=== PATIENT | female | born 1970 | race Caucasian/White ===

== ENCOUNTER 2019-11-12 09:03 | Emergency (ER) | payer OTHER ==
[~2019-11-12] VITALS: Ht 170.2 cm; Wt 81.6 kg
[2019-11-12 09:05] VITALS: BP_SYST 156
--- NOTE | 2019-11-12 09:09 | NUR ---
Patient to ER bed 05 to gown for evaluation. Side rails up.
--- NOTE | 2019-11-12 09:15 | NUR ---
Patient AAOx4 BIBA c/o right knee pain and abrasion s/p mechanical fall. Patient states she was getting something out of her car when she felt pain shoot up her leg and her "knee gave out" and she fell on her hands and knees. Patient reports PMH of diabetes and knee surgery in December 2018. Patient denies any allergies. Skin warm/pink/dry and respirations even and unlabored. No signs or symptoms of acute distress noted.
--- NOTE | 2019-11-12 09:23 | NUR ---
ER Dr. León at bedside examining patient.
[2019-11-12] MEDS ORDERED: KETOROLAC TROMETHAMINE 30 MG VIAL IM ONE (09:30)
--- NOTE | 2019-11-12 10:00 | NUR ---
Knee immobilizer placed on patient's right knee per Dr. Mau hogan.
--- NOTE | 2019-11-12 10:11 | NUR ---
Patient given written and verbal discharge instructions and verbalizes understanding. ER MD discussed with patient the results and treatment provided. Patient in stable condition. ID arm band removed. Rx of Robaxin and Tramadol Hydrochloride given. Patient educated on pain management and to follow up with PMD. Pain Scale 3/10 and tolerable. Opportunity for questions provided and answered. Medication side effect fact sheet provided.
[2019-11-12 10:14] VITALS: BP_SYST 145
== END 2019-11-12 10:12 | disposition home or self-care (01) ==
LOC: SED 09:03
DX: S80.01XA Contusion of right knee, initial encounter (principal); W18.39XA Other fall on same level, initial encounter; Y93.89 Activity, other specified; Y92.89 Other specified places as the place of occurrence of the external cause; Y99.8 Other external cause status
CPT/HCPCS: 29505; 73564; 96372; 99283; J1885

== ENCOUNTER 2022-01-16 17:55 | Inpatient (IN) | payer BC, SELFPAY ==
[~2022-01-16] VITALS: Ht 170.2 cm; Wt 88.5 kg
[2022-01-16 18:05] VITALS: BP_SYST 205
[2022-01-16 19:13] LABS: BASOPHILS % (AUTO) 0.8 % (0.0-2.0); EOSINOPHILS # (AUTO) 0.2 K/uL (0.0-0.4); EOSINOPHILS % (AUTO) 3.5 % (0.0-4.0); HEMATOCRIT 30.3 % (36-48); HEMOGLOBIN 9.8 g/dL (12.0-16.0); LYMPHOCYTES # (AUTO) 1.4 K/uL (1.0-5.5); LYMPHOCYTES % (AUTO) 21.2 % (20.5-51.5); MEAN CORPUSCULAR HEMOGLOBIN 28 pg (27-31); MEAN CORPUSCULAR HGB CONC 32 % (32-36); MEAN CORPUSCULAR VOLUME 87 fL (79.0-98.0); MONOCYTES # (AUTO) 0.5 K/uL (0.0-1.0); MONOCYTES % (AUTO) 7.4 % (1.7-9.3); NEUTROPHILS # (AUTO) 4.3 K/uL (1.8-7.7); NEUTROPHILS % (AUTO) 67.1 % (40.0-70.0); PLATELET COUNT (AUTO) 279 K/uL (130-430); RED BLOOD CELL COUNT(AUTO) 3.49 MIL/uL (4.2-6.2); RED CELL DISTRIBUTION WIDTH 15.2 % (9.0-15.0); WHITE BLOOD COUNT (AUTO) 6.4 K/uL (4.8-10.8)
[2022-01-16 19:15] LABS: CALCIUM 7.5 mg/dL (8.4-11.0); POTASSIUM 4.8 mmol/L (3.5-5.1)
[2022-01-16 19:31] LABS: ALBUMIN 2.4 g/dL (3.4-4.8); TOTAL BILIRUBIN 0.2 mg/dL (0.0-1.0)
[2022-01-16 19:37] LABS: CREATININE 8.09 mg/dL (0.55-1.30)
[2022-01-16] MEDS ORDERED: ASPIRIN 325 MG TABLET (ECOTRIN) PO ONE (20:00)
[2022-01-16] MEDS ORDERED: FURO-149 PO (20:10)
[2022-01-16] MEDS ORDERED: STA120 PO (20:10)
[2022-01-16] MEDS ORDERED: INSU300I SQ (20:10)
[2022-01-16] MEDS ORDERED: DULA0.75 (20:10)
[2022-01-16] MEDS ORDERED: HYDR-4039 PO (20:10)
[2022-01-16] MEDS ORDERED: CLON0.1T PO (20:10)
[2022-01-16] MEDS ORDERED: ALBUTEROL SULFATE 0.083% 2.5 MG/3 ML VIAL.NEB INH PRN (20:30)
[2022-01-16] MEDS ORDERED: HYDROcodone/ACETAMIN 5-325 MG TAB (NORCO/ VICODIN) PO PRN (20:30)
[2022-01-16 21:37] VITALS: BP_SYST 193
[2022-01-17] MEDS: cloNIDine HCL 0.1 MG TABLET PO SCH ×3 (01:08→21:11)
[2022-01-17] MEDS: NORMAL SALINE 5 ML DISP.SYRIN IVF SCH ×4 (01:10→20:24)
[2022-01-17] MEDS: INSULIN REGULAR, HUMAN 100 UNITS/ML, 10 ML VIAL (humuLIN R) SUBCUT PRN ×2 (01:13→18:37)
[2022-01-17 01:53] VITALS: BP_SYST 121
[2022-01-17 07:41] LABS: CALCIUM 7.2 mg/dL (8.4-11.0); POTASSIUM 4.8 mmol/L (3.5-5.1); TOTAL BILIRUBIN 0.1 mg/dL (0.0-1.0)
[2022-01-17 08:00] VITALS: BP_SYST 182
[2022-01-17 08:08] LABS: CREATININE 8.24 mg/dL (0.55-1.30)
[2022-01-17 08:54] LABS: BASOPHILS # (AUTO) 0.1 K/uL (0.0-0.2); BASOPHILS % (AUTO) 1.1 % (0.0-2.0); EOSINOPHILS # (AUTO) 0.3 K/uL (0.0-0.4); EOSINOPHILS % (AUTO) 5.7 % (0.0-4.0); HEMATOCRIT 25.1 % (36-48); HEMOGLOBIN 8.2 g/dL (12.0-16.0); LYMPHOCYTES # (AUTO) 1.8 K/uL (1.0-5.5); LYMPHOCYTES % (AUTO) 35.1 % (20.5-51.5); MEAN CORPUSCULAR HEMOGLOBIN 29 pg (27-31); MEAN CORPUSCULAR HGB CONC 33 % (32-36); MEAN CORPUSCULAR VOLUME 87 fL (79.0-98.0); MONOCYTES # (AUTO) 0.5 K/uL (0.0-1.0); MONOCYTES % (AUTO) 10.6 % (1.7-9.3); NEUTROPHILS # (AUTO) 2.5 K/uL (1.8-7.7); NEUTROPHILS % (AUTO) 47.5 % (40.0-70.0); PLATELET COUNT (AUTO) 227 K/uL (130-430); RED BLOOD CELL COUNT(AUTO) 2.88 MIL/uL (4.2-6.2); RED CELL DISTRIBUTION WIDTH 15.2 % (9.0-15.0); WHITE BLOOD COUNT (AUTO) 5.2 K/uL (4.8-10.8)
[2022-01-17] MEDS ORDERED: hydrALAZINE HCL 25 MG TABLET PO SCH (09:00)
[2022-01-17] MEDS: ASPIRIN 325 MG TABLET PO SCH (09:01)
[2022-01-17] MEDS: FUROSEMIDE 40 MG TABLET PO SCH (09:04)
[2022-01-17] MEDS ORDERED: ACETAMINOPHEN 325 MG TABLET PO PRN (10:45)
[2022-01-17] MEDS ORDERED: HYDROcodone/ACETAMIN 5-325 MG TAB (NORCO/ VICODIN) PO PRN (10:45)
[2022-01-17] MEDS ORDERED: LORazepam 2 MG/ML VIAL IVP PRN (10:45)
[2022-01-17] MEDS ORDERED: NALOXONE HCL 0.4 MG/ML AMP (NARCAN) IVP PRN ×2 (10:45)
[2022-01-17 12:00] VITALS: BP_SYST 158
[2022-01-17 16:00] VITALS: BP_SYST 197
[2022-01-17] MEDS ORDERED: SODIUM BICARBONATE 650 MG TABLET PO ONE (16:30)
[2022-01-17] MEDS ORDERED: HEPARIN SODIUM,PORCINE 5,000 UNITS/ML VIAL MC ONE (16:30)
[2022-01-17] MEDS ORDERED: SODIUM BICARBONATE 8.4% JECT 50 MEQ/50 ML SYRINGE IVP ONE (16:30)
[2022-01-17] MEDS: HYDROcodone/ACETAMIN 10-325 MG TAB PO PRN (19:32)
[2022-01-17 20:08] LABS: CLARITY/URINE CLEAR (CLEAR); COLOR,URINE YELLOW (YELLOW)
[2022-01-17 20:09] LABS: BILIRUBIN,URINE NEGATIVE (NEGATIVE); BLOOD, URINE 1+ (NEGATIVE); GLUCOSE,URINE 2+ (NEGATIVE); KETONES,URINE NEGATIVE (NEGATIVE); LEUKOCYTE ESTERASE ,URINE NEGATIVE (NEGATIVE); NITRITE, URINE NEGATIVE (NEGATIVE); PH,URINE 5.5 (5.0-8.0); PROTEIN URINE 3+ (NEGATIVE); UROBILINOGEN,URINE 0.2 (0.2-1.0)
[2022-01-17 20:10] LABS: BACTERIA,URINE FEW /HPF (None Seen); FINE GRANULAR CASTS,URINE 0-10 /LPF (None Seen); MUCUS,URINE None Seen /LPF (None Seen); RBC,URINE 0-3 /HPF (0-3); WBC,URINE 0-3 /HPF (0-3)
[2022-01-17] MEDS: SODIUM BICARBONATE 650 MG TABLET PO SCH (21:11)
[2022-01-18 00:29] VITALS: BP_SYST 186
[2022-01-18] MEDS: HYDROcodone/ACETAMIN 10-325 MG TAB PO PRN (03:23)
[2022-01-18 06:34] LABS: BASOPHILS # (AUTO) 0.1 K/uL (0.0-0.2); BASOPHILS % (AUTO) 0.9 % (0.0-2.0); EOSINOPHILS # (AUTO) 0.3 K/uL (0.0-0.4); EOSINOPHILS % (AUTO) 4.8 % (0.0-4.0); HEMATOCRIT 25.8 % (36-48); HEMOGLOBIN 8.5 g/dL (12.0-16.0); LYMPHOCYTES # (AUTO) 0.9 K/uL (1.0-5.5); MEAN CORPUSCULAR HEMOGLOBIN 29 pg (27-31); MEAN CORPUSCULAR HGB CONC 33 % (32-36); MEAN CORPUSCULAR VOLUME 87 fL (79.0-98.0); MONOCYTES # (AUTO) 0.5 K/uL (0.0-1.0); MONOCYTES % (AUTO) 8.3 % (1.7-9.3); NEUTROPHILS # (AUTO) 4.1 K/uL (1.8-7.7); PLATELET COUNT (AUTO) 238 K/uL (130-430); RED BLOOD CELL COUNT(AUTO) 2.98 MIL/uL (4.2-6.2); RED CELL DISTRIBUTION WIDTH 14.9 % (9.0-15.0); WHITE BLOOD COUNT (AUTO) 5.9 K/uL (4.8-10.8)
[2022-01-18] MEDS: NORMAL SALINE 5 ML DISP.SYRIN IVF SCH ×3 (06:38→22:16)
[2022-01-18 06:39] LABS: PROTHROMBIN TIME 9.8 SECS (9.5-12.5)
[2022-01-18 07:14] LABS: TOTAL IRON BIND. CAPACITY 177 ug/dL (250-450)
[2022-01-18 07:18] LABS: ALBUMIN 1.7 g/dL (3.4-4.8); CALCIUM 7.1 mg/dL (8.4-11.0); POTASSIUM 5.1 mmol/L (3.5-5.1); TOTAL BILIRUBIN 0.2 mg/dL (0.0-1.0)
[2022-01-18 08:24] VITALS: BP_SYST 185
[2022-01-18] MEDS: FUROSEMIDE 40 MG TABLET PO SCH (08:42)
[2022-01-18] MEDS: ASPIRIN 325 MG TABLET PO SCH (08:43)
[2022-01-18] MEDS: cloNIDine HCL 0.1 MG TABLET PO SCH ×2 (08:43→20:51)
[2022-01-18] MEDS: ACETAMINOPHEN 325 MG TABLET PO PRN ×3 (08:43→18:17)
[2022-01-18] MEDS: SODIUM BICARBONATE 650 MG TABLET PO SCH ×3 (08:43→20:50)
[2022-01-18] MEDS ORDERED: HEPARIN SODIUM,PORCINE 5,000 UNITS/ML VIAL SUBCUT ONE ×2 (09:00)
[2022-01-18] MEDS ORDERED: hydrALAZINE HCL 25 MG TABLET PO SCH (09:00)
[2022-01-18 09:07] LABS: CREATININE 9.13 mg/dL (0.55-1.30); PHOSPHORUS 9.5 mg/dL (2.7-4.5)
[2022-01-18] MEDS: ONDANSETRON HCL 4 MG/2 ML VIAL IVP PRN ×2 (09:45→14:16)
[2022-01-18] MEDS ORDERED: hydrALAZINE HCL 20 MG/ML VIAL IVP ONE (11:15)
[2022-01-18 11:22] VITALS: BP_SYST 198
[2022-01-18] MEDS: hydrALAZINE HCL 25 MG TABLET PO SCH ×2 (13:49→22:16)
[2022-01-18 14:56] LABS: BARBITURATE, URINE NEGATIVE (NEG <=200); BENZODIAZEPINE, URINE NEGATIVE (NEG <=150); CANNABINOID, URINE NEGATIVE (NEG <=50); COCAINE, URINE NEGATIVE (NEG <=150); METHAMPHETAMINES SCREEN,URINE NEGATIVE (NEG <=500); OPIATE, URINE NEGATIVE (NEG <=100); PHENCYCLIDINE SCREEN,URINE NEGATIVE (NEG <=25); UR TRICYCLIC ANTIDEPRESSANTS NEGATIVE (NEG <=300); URINE AMPHETAMINE NEGATIVE (NEG <=500); URINE METHADONE NEGATIVE (NEG <=200); URINE OXYCODONE SCREEN NEGATIVE (NEG <=100); URINE PROPOXYPHENE SCREEN NEGATIVE (NEG <=300)
[2022-01-18 15:57] VITALS: BP_SYST 173
[2022-01-18 16:13] LABS: THYROID STIMULATING HORMONE 2.93 uIu/mL (0.34-4.82)
[2022-01-18] MEDS: EPOETIN ALFA 10,000 UNITS/ML VIAL SUBCUT SCH (16:33)
[2022-01-18] MEDS: INSULIN REGULAR, HUMAN 100 UNITS/ML, 10 ML VIAL (humuLIN R) SUBCUT PRN ×2 (16:36→20:49)
[2022-01-18] MEDS ORDERED: POTASSIUM CHLORIDE 20 MEQ/PKT PACKET PO ONE (19:45)
[2022-01-18] MEDS ORDERED: CALCIUM ACETATE 667 MG CAP PO ONE (20:00)
[2022-01-18] MEDS: SOD FERRIC GLUC COMPLEX/SUC 125 MG in NS 100 ML IV SCH (21:00)
[2022-01-18] MEDS: METOCLOPRAMIDE HCL 10 MG/2 ML VIAL IVP PRN (22:14)
[2022-01-19 00:17] VITALS: BP_SYST 156
[2022-01-19] MEDS: NORMAL SALINE 5 ML DISP.SYRIN IVF SCH ×3 (06:17→21:36)
[2022-01-19] MEDS: hydrALAZINE HCL 25 MG TABLET PO SCH ×4 (06:17→22:00)
[2022-01-19] MEDS: INSULIN REGULAR, HUMAN 100 UNITS/ML, 10 ML VIAL (humuLIN R) SUBCUT PRN ×3 (06:19→20:37)
[2022-01-19 06:29] VITALS: BP_SYST 155
[2022-01-19 07:01] LABS: ALBUMIN 1.8 g/dL (3.4-4.8); CALCIUM 7.4 mg/dL (8.4-11.0); CREATININE 6.53 mg/dL (0.55-1.30); POTASSIUM 4.5 mmol/L (3.5-5.1); TOTAL BILIRUBIN 0.3 mg/dL (0.0-1.0)
[2022-01-19 07:50] LABS: BASOPHILS % (AUTO) 1.1 % (0.0-2.0); EOSINOPHILS # (AUTO) 0.2 K/uL (0.0-0.4); EOSINOPHILS % (AUTO) 6.1 % (0.0-4.0); HEMOGLOBIN 9.2 g/dL (12.0-16.0); LYMPHOCYTES # (AUTO) 1.2 K/uL (1.0-5.5); LYMPHOCYTES % (AUTO) 29.5 % (20.5-51.5); MEAN CORPUSCULAR HEMOGLOBIN 29 pg (27-31); MEAN CORPUSCULAR HGB CONC 33 % (32-36); MEAN CORPUSCULAR VOLUME 87 fL (79.0-98.0); MONOCYTES # (AUTO) 0.4 K/uL (0.0-1.0); MONOCYTES % (AUTO) 11.4 % (1.7-9.3); NEUTROPHILS % (AUTO) 51.9 % (40.0-70.0); PLATELET COUNT (AUTO) 204 K/uL (130-430); RED BLOOD CELL COUNT(AUTO) 3.24 MIL/uL (4.2-6.2); WHITE BLOOD COUNT (AUTO) 3.9 K/uL (4.8-10.8)
[2022-01-19] MEDS: SODIUM BICARBONATE 650 MG TABLET PO SCH ×4 (09:38→21:00)
[2022-01-19] MEDS: cloNIDine HCL 0.1 MG TABLET PO SCH (09:39)
[2022-01-19] MEDS: CALCIUM ACETATE 667 MG CAP PO SCH ×4 (09:40→17:41)
[2022-01-19] MEDS: FUROSEMIDE 40 MG TABLET PO SCH (09:40)
[2022-01-19] MEDS: ASPIRIN 325 MG TABLET PO SCH (09:40)
[2022-01-19] MEDS ORDERED: hydrALAZINE HCL 20 MG/ML VIAL IVP ONE (09:45)
[2022-01-19] MEDS: ONDANSETRON HCL 4 MG/2 ML VIAL IVP PRN ×3 (10:28→20:19)
[2022-01-19 11:04] LABS: URINE SODIUM, RANDOM 52 mmol/L (40-220)
[2022-01-19 11:34] VITALS: BP_SYST 149
[2022-01-19 11:50] VITALS: BP_SYST 203
[2022-01-19 14:06] LABS: CREATININE, URINE 58.3 mg/dL (Not Estab.)
[2022-01-19] MEDS ORDERED: HEPARIN SODIUM,PORCINE 5,000 UNITS/ML VIAL MC ONE (14:45)
[2022-01-19 15:23] VITALS: BP_SYST 165
[2022-01-19] MEDS ORDERED: HEPARIN SODIUM,PORCINE 5,000 UNITS/ML VIAL ONE (16:44)
[2022-01-19] MEDS: METOCLOPRAMIDE HCL 10 MG/2 ML VIAL IVP PRN (17:15)
[2022-01-19] MEDS: ACETAMINOPHEN 325 MG TABLET PO PRN (17:49)
[2022-01-19] MEDS: SOD FERRIC GLUC COMPLEX/SUC 125 MG in NS 100 ML IV SCH (20:30)
[2022-01-19] MEDS: cloNIDine HCL 0.2 MG TABLET PO SCH (21:00)
[2022-01-19] MEDS ORDERED: hydrALAZINE HCL 20 MG/ML VIAL ONE (21:23)
[2022-01-19] MEDS: hydrALAZINE HCL 20 MG/ML VIAL IVP PRN (21:31)
[2022-01-19 22:47] VITALS: BP_SYST 194
[2022-01-20 00:43] VITALS: BP_SYST 165
[2022-01-20] MEDS: METOCLOPRAMIDE HCL 10 MG/2 ML VIAL IVP PRN ×3 (01:36→20:30)
[2022-01-20] MEDS: ONDANSETRON HCL 4 MG/2 ML VIAL IVP PRN ×2 (01:36→12:30)
[2022-01-20] MEDS: hydrALAZINE HCL 25 MG TABLET PO SCH ×3 (06:00→22:00)
[2022-01-20 06:34] LABS: EOSINOPHILS % (AUTO) 0.4 % (0.0-4.0); HEMATOCRIT 29.9 % (36-48); HEMOGLOBIN 9.6 g/dL (12.0-16.0); LYMPHOCYTES # (AUTO) 0.6 K/uL (1.0-5.5); LYMPHOCYTES % (AUTO) 12.6 % (20.5-51.5); MEAN CORPUSCULAR HEMOGLOBIN 28 pg (27-31); MEAN CORPUSCULAR HGB CONC 32 % (32-36); MEAN CORPUSCULAR VOLUME 87 fL (79.0-98.0); MONOCYTES # (AUTO) 0.3 K/uL (0.0-1.0); MONOCYTES % (AUTO) 7.3 % (1.7-9.3); NEUTROPHILS # (AUTO) 3.6 K/uL (1.8-7.7); NEUTROPHILS % (AUTO) 78.7 % (40.0-70.0); PLATELET COUNT (AUTO) 222 K/uL (130-430); RED BLOOD CELL COUNT(AUTO) 3.44 MIL/uL (4.2-6.2); RED CELL DISTRIBUTION WIDTH 14.8 % (9.0-15.0); WHITE BLOOD COUNT (AUTO) 4.6 K/uL (4.8-10.8)
[2022-01-20] MEDS ORDERED: hydrALAZINE HCL 20 MG/ML VIAL ONE (06:42)
[2022-01-20] MEDS: NORMAL SALINE 5 ML DISP.SYRIN IVF SCH ×3 (06:44→21:59)
[2022-01-20] MEDS: hydrALAZINE HCL 20 MG/ML VIAL IVP PRN (06:45)
[2022-01-20 06:50] VITALS: BP_SYST 159
[2022-01-20 07:14] LABS: CALCIUM 7.8 mg/dL (8.4-11.0); CREATININE 4.95 mg/dL (0.55-1.30); POTASSIUM 3.9 mmol/L (3.5-5.1)
[2022-01-20 08:00] VITALS: BP_SYST 166
[2022-01-20] MEDS: CALCIUM ACETATE 667 MG CAP PO SCH ×3 (09:05→17:36)
[2022-01-20] MEDS: cloNIDine HCL 0.2 MG TABLET PO SCH ×2 (09:05→20:48)
[2022-01-20] MEDS: FUROSEMIDE 40 MG TABLET PO SCH (09:06)
[2022-01-20] MEDS: SODIUM BICARBONATE 650 MG TABLET PO SCH ×3 (09:06→20:50)
[2022-01-20] MEDS: ASPIRIN 325 MG TABLET PO SCH (09:07)
[2022-01-20] MEDS ORDERED: PANTOPRAZOLE SODIUM 40 MG/VIAL (PROTONIX) IVP ONE (10:00)
[2022-01-20 12:00] VITALS: BP_SYST 162
[2022-01-20 13:17] LABS: HEMATOCRIT 30.3 % (36-48); HEMOGLOBIN 9.7 g/dL (12.0-16.0)
[2022-01-20 16:00] VITALS: BP_SYST 159
[2022-01-20] MEDS: EPOETIN ALFA 10,000 UNITS/ML VIAL SUBCUT SCH (17:23)
[2022-01-20] MEDS: INSULIN REGULAR, HUMAN 100 UNITS/ML, 10 ML VIAL (humuLIN R) SUBCUT PRN ×2 (17:36→20:45)
[2022-01-20] MEDS ORDERED: LOSARTAN POTASSIUM 50 MG TABLET (COZAAR) PO ONE (18:00)
[2022-01-20 20:05] LABS: HEMATOCRIT 29.4 % (36-48); HEMOGLOBIN 9.6 g/dL (12.0-16.0)
[2022-01-20 20:11] VITALS: BP_SYST 158
[2022-01-20] MEDS: SOD FERRIC GLUC COMPLEX/SUC 125 MG in NS 100 ML IV SCH (20:33)
[2022-01-20] MEDS: PANTOPRAZOLE SODIUM 40 MG/VIAL (PROTONIX) IVP SCH (20:47)
[2022-01-21 00:47] VITALS: BP_SYST 148
[2022-01-21] MEDS: hydrALAZINE HCL 25 MG TABLET PO SCH ×3 (06:20→20:56)
[2022-01-21] MEDS: NORMAL SALINE 5 ML DISP.SYRIN IVF SCH ×3 (06:25→22:00)
[2022-01-21 06:48] LABS: BASOPHILS # (AUTO) 0.1 K/uL (0.0-0.2); EOSINOPHILS # (AUTO) 0.1 K/uL (0.0-0.4); EOSINOPHILS % (AUTO) 1.8 % (0.0-4.0); HEMATOCRIT 29.8 % (36-48); HEMOGLOBIN 9.5 g/dL (12.0-16.0); LYMPHOCYTES # (AUTO) 1.1 K/uL (1.0-5.5); MEAN CORPUSCULAR HEMOGLOBIN 28 pg (27-31); MEAN CORPUSCULAR HGB CONC 32 % (32-36); MEAN CORPUSCULAR VOLUME 87 fL (79.0-98.0); MONOCYTES # (AUTO) 0.7 K/uL (0.0-1.0); MONOCYTES % (AUTO) 13.1 % (1.7-9.3); NEUTROPHILS # (AUTO) 3.1 K/uL (1.8-7.7); NEUTROPHILS % (AUTO) 62.1 % (40.0-70.0); PLATELET COUNT (AUTO) 224 K/uL (130-430); RED BLOOD CELL COUNT(AUTO) 3.42 MIL/uL (4.2-6.2); RED CELL DISTRIBUTION WIDTH 14.8 % (9.0-15.0)
[2022-01-21 06:57] LABS: CALCIUM 7.9 mg/dL (8.4-11.0); CREATININE 5.52 mg/dL (0.55-1.30); POTASSIUM 4.2 mmol/L (3.5-5.1)
[2022-01-21 07:06] LABS: HEPATITIS A AB, IgM Negative (Negative); HEPATITIS B CORE AB, IgM Negative (Negative); HEPATITIS B SURFACE AG Negative (Negative)
[2022-01-21] MEDS: CALCIUM ACETATE 667 MG CAP PO SCH ×3 (08:00→17:35)
[2022-01-21 08:03] VITALS: BP_SYST 162
[2022-01-21] MEDS: PANTOPRAZOLE SODIUM 40 MG/VIAL (PROTONIX) IVP SCH ×2 (08:48→21:02)
[2022-01-21] MEDS: cloNIDine HCL 0.2 MG TABLET PO SCH ×2 (08:59→21:01)
[2022-01-21] MEDS: FUROSEMIDE 40 MG TABLET PO SCH (09:00)
[2022-01-21] MEDS: LOSARTAN POTASSIUM 50 MG TABLET (COZAAR) PO SCH (09:00)
[2022-01-21] MEDS: SODIUM BICARBONATE 650 MG TABLET PO SCH ×3 (09:00→20:55)
[2022-01-21 11:23] VITALS: BP_SYST 162
[2022-01-21] MEDS ORDERED: NS IRRIG SOLN 1000 ML IR ONE (12:15)
[2022-01-21] MEDS ORDERED: HEPARIN SODIUM,PORCINE/NS/PF 1,000 UNITS/500 ML BAG IV ONE (12:15)
[2022-01-21] MEDS ORDERED: ceFAZolin SODIUM 1 GM VIAL ONE (12:15)
[2022-01-21] MEDS ORDERED: LIDOCAINE 1% 10 MG/ML, 20 ML MDV ONE (12:15)
[2022-01-21] MEDS ORDERED: MIDAZOLAM HCL 2 MG/2 ML VIAL (VERSED) ONE (12:15)
[2022-01-21] MEDS ORDERED: PROPOFOL 200MG/ 20ML VIAL (DIPRIVAN) IV ONE (12:15)
[2022-01-21] MEDS ORDERED: NS 1000 ML IV.SOLN IV ONE (12:15)
[2022-01-21] MEDS ORDERED: fentaNYL CITRATE 250 MCG/5 ML AMP ONE (12:15)
[2022-01-21] MEDS ORDERED: HYDROmorphone 1 MG/ML INJ. CARTRIDGE IVP PRN (13:15)
[2022-01-21] MEDS ORDERED: NACL 0.9% 1,000 ML IV SCH (13:15)
[2022-01-21] MEDS ORDERED: METOCLOPRAMIDE HCL 10 MG/2 ML VIAL IVP PRN (13:15)
[2022-01-21] MEDS ORDERED: ONDANSETRON HCL 4 MG/2 ML VIAL IVP PRN (13:15)
[2022-01-21 14:30] VITALS: BP_SYST 192
[2022-01-21] MEDS ORDERED: HEPARIN SODIUM,PORCINE 5,000 UNITS/ML VIAL SUBCUT ONE ×2 (16:15→16:30)
[2022-01-21 18:30] LABS: HEMOGLOBIN 9.8 g/dL (12.0-16.0)
[2022-01-21 20:00] VITALS: BP_SYST 163
[2022-01-21] MEDS: ACETAMINOPHEN 325 MG TABLET PO PRN (20:57)
[2022-01-21] MEDS: SOD FERRIC GLUC COMPLEX/SUC 125 MG in NS 100 ML IV SCH (20:58)
[2022-01-22 00:33] VITALS: BP_SYST 192
[2022-01-22 02:47] LABS: HEMATOCRIT 27.2 % (36-48); HEMOGLOBIN 8.8 g/dL (12.0-16.0)
[2022-01-22] MEDS: NORMAL SALINE 5 ML DISP.SYRIN IVF SCH ×3 (04:12→22:34)
[2022-01-22] MEDS: hydrALAZINE HCL 25 MG TABLET PO SCH ×3 (05:56→22:32)
[2022-01-22 08:00] VITALS: BP_SYST 147
[2022-01-22] MEDS: SODIUM BICARBONATE 650 MG TABLET PO SCH ×3 (09:22→22:32)
[2022-01-22] MEDS: cloNIDine HCL 0.2 MG TABLET PO SCH ×2 (09:23→22:32)
[2022-01-22] MEDS: FUROSEMIDE 40 MG TABLET PO SCH (09:23)
[2022-01-22] MEDS: CALCIUM ACETATE 667 MG CAP PO SCH ×3 (09:24→17:46)
[2022-01-22] MEDS: LOSARTAN POTASSIUM 50 MG TABLET (COZAAR) PO SCH (09:25)
[2022-01-22] MEDS: ASPIRIN 325 MG TABLET PO SCH (09:25)
[2022-01-22] MEDS: PANTOPRAZOLE SODIUM 40 MG/VIAL (PROTONIX) IVP SCH ×2 (09:25→22:32)
[2022-01-22 09:48] VITALS: BP_SYST 147
[2022-01-22 10:19] LABS: HEMATOCRIT 30.4 % (36-48); HEMOGLOBIN 9.8 g/dL (12.0-16.0)
[2022-01-22] MEDS: INSULIN REGULAR, HUMAN 100 UNITS/ML, 10 ML VIAL (humuLIN R) SUBCUT PRN ×3 (11:58→22:34)
[2022-01-22 12:45] VITALS: BP_SYST 164
[2022-01-22 16:45] VITALS: BP_SYST 157
[2022-01-22] MEDS: EPOETIN ALFA 10,000 UNITS/ML VIAL SUBCUT SCH (17:47)
[2022-01-22 18:37] LABS: HEMATOCRIT 29.6 % (36-48); HEMOGLOBIN 9.7 g/dL (12.0-16.0)
[2022-01-22] MEDS: SOD FERRIC GLUC COMPLEX/SUC 125 MG in NS 100 ML IV SCH (20:00)
[2022-01-22 22:29] VITALS: BP_SYST 160
[2022-01-23 00:13] VITALS: BP_SYST 161
[2022-01-23 06:34] VITALS: BP_SYST 145
[2022-01-23] MEDS: hydrALAZINE HCL 25 MG TABLET PO SCH ×3 (06:35→22:33)
[2022-01-23] MEDS: NORMAL SALINE 5 ML DISP.SYRIN IVF SCH ×3 (06:35→22:22)
[2022-01-23] MEDS: INSULIN REGULAR, HUMAN 100 UNITS/ML, 10 ML VIAL (humuLIN R) SUBCUT PRN ×4 (06:37→21:01)
[2022-01-23 07:13] LABS: BASOPHILS % (AUTO) 0.9 % (0.0-2.0); EOSINOPHILS # (AUTO) 0.3 K/uL (0.0-0.4); EOSINOPHILS % (AUTO) 6.2 % (0.0-4.0); HEMATOCRIT 27.2 % (36-48); HEMOGLOBIN 8.8 g/dL (12.0-16.0); LYMPHOCYTES # (AUTO) 1.1 K/uL (1.0-5.5); LYMPHOCYTES % (AUTO) 20.5 % (20.5-51.5); MEAN CORPUSCULAR HEMOGLOBIN 29 pg (27-31); MEAN CORPUSCULAR HGB CONC 32 % (32-36); MEAN CORPUSCULAR VOLUME 88 fL (79.0-98.0); MONOCYTES # (AUTO) 0.6 K/uL (0.0-1.0); MONOCYTES % (AUTO) 11.6 % (1.7-9.3); NEUTROPHILS # (AUTO) 3.4 K/uL (1.8-7.7); NEUTROPHILS % (AUTO) 60.8 % (40.0-70.0); PLATELET COUNT (AUTO) 202 K/uL (130-430); RED BLOOD CELL COUNT(AUTO) 3.08 MIL/uL (4.2-6.2); RED CELL DISTRIBUTION WIDTH 14.7 % (9.0-15.0); WHITE BLOOD COUNT (AUTO) 5.5 K/uL (4.8-10.8)
[2022-01-23 07:27] LABS: ALANINE AMINOTRANSFERASE 10 U/L (12-78); ANION GAP 7 (5-15); ASPARTATE AMINOTRANSFERASE 15 U/L (10-37); CALCIUM 8.1 mg/dL (8.4-11.0); CHLORIDE 100 mmol/L (98-107); CREATININE 4.93 mg/dL (0.55-1.30); GLUCOSE 262 mg/dL (70-99); PHOSPHORUS 4.8 mg/dL (2.7-4.5); POTASSIUM 4.4 mmol/L (3.5-5.1); SODIUM SERUM 136 mmol/L (136-145); TOTAL BILIRUBIN < 0.1 mg/dL (0.0-1.0); UREA NITROGEN, BLOOD 38 mg/dL (8-21)
[2022-01-23 07:48] LABS: GFR AFRICAN AMERICAN 12 mL/min (>90)
[2022-01-23 08:28] VITALS: BP_SYST 165
[2022-01-23] MEDS: SODIUM BICARBONATE 650 MG TABLET PO SCH ×3 (08:32→20:03)
[2022-01-23] MEDS: CALCIUM ACETATE 667 MG CAP PO SCH ×3 (08:32→17:24)
[2022-01-23] MEDS: ASPIRIN 325 MG TABLET PO SCH (08:32)
[2022-01-23] MEDS: PANTOPRAZOLE SODIUM 40 MG/VIAL (PROTONIX) IVP SCH ×2 (08:32→20:04)
[2022-01-23] MEDS: cloNIDine HCL 0.2 MG TABLET PO SCH ×2 (08:33→20:04)
[2022-01-23] MEDS: FUROSEMIDE 40 MG TABLET PO SCH (08:33)
[2022-01-23] MEDS: LOSARTAN POTASSIUM 50 MG TABLET (COZAAR) PO SCH (08:34)
[2022-01-23] MEDS: BALSAM PERU/CASTOR OIL 56.7 GM OINT...G. TP SCH (08:46)
[2022-01-23] MEDS ORDERED: HEPARIN SODIUM,PORCINE 5,000 UNITS/ML VIAL ONE ×2 (10:58→13:46)
[2022-01-23] MEDS ORDERED: HEPARIN SODIUM,PORCINE 5,000 UNITS/ML VIAL MC ONE (11:00)
[2022-01-23 12:38] VITALS: BP_SYST 150
[2022-01-23 15:14] VITALS: BP_SYST 155
[2022-01-23 20:00] VITALS: BP_SYST 145
[2022-01-23] MEDS: ACETAMINOPHEN 325 MG TABLET PO PRN (20:03)
[2022-01-23] MEDS: SOD FERRIC GLUC COMPLEX/SUC 125 MG in NS 100 ML IV SCH (20:04)
[2022-01-23 20:11] LABS: TOTAL IRON BIND. CAPACITY 164 ug/dL (250-450)
[2022-01-23] MEDS: NEPHROVITE, (FOLIC ACID/VITAMIN B COMP W-C 1 TAB) PO SCH (22:32)
[2022-01-24 00:23] VITALS: BP_SYST 146
[2022-01-24] MEDS: NORMAL SALINE 5 ML DISP.SYRIN IVF SCH ×3 (06:15→20:44)
[2022-01-24] MEDS: hydrALAZINE HCL 25 MG TABLET PO SCH ×3 (06:20→21:42)
[2022-01-24] MEDS: INSULIN REGULAR, HUMAN 100 UNITS/ML, 10 ML VIAL (humuLIN R) SUBCUT PRN ×4 (06:24→20:47)
[2022-01-24 07:17] LABS: BASOPHILS % (AUTO) 0.9 % (0.0-2.0); EOSINOPHILS # (AUTO) 0.3 K/uL (0.0-0.4); EOSINOPHILS % (AUTO) 6.3 % (0.0-4.0); HEMATOCRIT 27.8 % (36-48); LYMPHOCYTES # (AUTO) 1.4 K/uL (1.0-5.5); LYMPHOCYTES % (AUTO) 27.1 % (20.5-51.5); MEAN CORPUSCULAR HEMOGLOBIN 29 pg (27-31); MEAN CORPUSCULAR HGB CONC 32 % (32-36); MEAN CORPUSCULAR VOLUME 89 fL (79.0-98.0); MONOCYTES # (AUTO) 0.7 K/uL (0.0-1.0); MONOCYTES % (AUTO) 12.7 % (1.7-9.3); NEUTROPHILS # (AUTO) 2.8 K/uL (1.8-7.7); PLATELET COUNT (AUTO) 202 K/uL (130-430); RED BLOOD CELL COUNT(AUTO) 3.13 MIL/uL (4.2-6.2); RED CELL DISTRIBUTION WIDTH 14.9 % (9.0-15.0); WHITE BLOOD COUNT (AUTO) 5.3 K/uL (4.8-10.8)
[2022-01-24 07:46] LABS: CALCIUM 8.1 mg/dL (8.4-11.0); CREATININE 3.78 mg/dL (0.55-1.30); PHOSPHORUS 3.4 mg/dL (2.7-4.5); POTASSIUM 4.4 mmol/L (3.5-5.1)
[2022-01-24 08:22] VITALS: BP_SYST 151
[2022-01-24] MEDS: PANTOPRAZOLE SODIUM 40 MG/VIAL (PROTONIX) IVP SCH ×2 (09:01→20:32)
[2022-01-24] MEDS: SODIUM BICARBONATE 650 MG TABLET PO SCH ×3 (09:02→20:33)
[2022-01-24] MEDS: LOSARTAN POTASSIUM 50 MG TABLET (COZAAR) PO SCH (09:02)
[2022-01-24] MEDS: ASPIRIN 325 MG TABLET PO SCH (09:03)
[2022-01-24] MEDS: CALCIUM ACETATE 667 MG CAP PO SCH ×3 (09:03→16:15)
[2022-01-24] MEDS: cloNIDine HCL 0.2 MG TABLET PO SCH ×2 (09:03→20:32)
[2022-01-24] MEDS: FUROSEMIDE 40 MG TABLET PO SCH (09:04)
[2022-01-24] MEDS: NEPHROVITE, (FOLIC ACID/VITAMIN B COMP W-C 1 TAB) PO SCH (09:20)
[2022-01-24] MEDS: ACETAMINOPHEN 325 MG TABLET PO PRN (09:20)
[2022-01-24] MEDS: BALSAM PERU/CASTOR OIL 56.7 GM OINT...G. TP SCH (09:22)
[2022-01-24] MEDS ORDERED: FERR324T11 PO (11:19)
[2022-01-24] MEDS ORDERED: PRO40 PO (11:19)
[2022-01-24] MEDS ORDERED: NEPH PO (11:19)
[2022-01-24] MEDS ORDERED: LOSA50TA3 PO (11:19)
[2022-01-24] MEDS ORDERED: PHO667 PO (11:19)
[2022-01-24] MEDS ORDERED: SODI650T PO (11:19)
[2022-01-24 16:17] VITALS: BP_SYST 165
[2022-01-24 20:00] VITALS: BP_SYST 165
[2022-01-24] MEDS: SOD FERRIC GLUC COMPLEX/SUC 125 MG in NS 100 ML IV SCH (20:31)
[2022-01-25 01:27] VITALS: BP_SYST 144
[2022-01-25 06:14] LABS: BASOPHILS # (AUTO) 0.1 K/uL (0.0-0.2); BASOPHILS % (AUTO) 0.8 % (0.0-2.0); EOSINOPHILS # (AUTO) 0.4 K/uL (0.0-0.4); EOSINOPHILS % (AUTO) 5.3 % (0.0-4.0); HEMATOCRIT 27.6 % (36-48); LYMPHOCYTES # (AUTO) 1.3 K/uL (1.0-5.5); MEAN CORPUSCULAR HEMOGLOBIN 29 pg (27-31); MEAN CORPUSCULAR HGB CONC 33 % (32-36); MEAN CORPUSCULAR VOLUME 89 fL (79.0-98.0); MONOCYTES # (AUTO) 0.8 K/uL (0.0-1.0); MONOCYTES % (AUTO) 10.8 % (1.7-9.3); NEUTROPHILS # (AUTO) 4.5 K/uL (1.8-7.7); NEUTROPHILS % (AUTO) 64.1 % (40.0-70.0); PLATELET COUNT (AUTO) 209 K/uL (130-430); RED CELL DISTRIBUTION WIDTH 15.3 % (9.0-15.0); WHITE BLOOD COUNT (AUTO) 7.1 K/uL (4.8-10.8)
[2022-01-25] MEDS: hydrALAZINE HCL 25 MG TABLET PO SCH (06:23)
[2022-01-25] MEDS: NORMAL SALINE 5 ML DISP.SYRIN IVF SCH (06:24)
[2022-01-25] MEDS: INSULIN REGULAR, HUMAN 100 UNITS/ML, 10 ML VIAL (humuLIN R) SUBCUT PRN ×2 (06:27→10:42)
[2022-01-25 07:41] LABS: ALBUMIN 1.9 g/dL (3.4-4.8); CALCIUM 8.1 mg/dL (8.4-11.0); CREATININE 4.5 mg/dL (0.55-1.30); POTASSIUM 4.1 mmol/L (3.5-5.1)
[2022-01-25 07:54] LABS: TOTAL BILIRUBIN 0.2 mg/dL (0.0-1.0)
[2022-01-25 08:00] VITALS: BP_SYST 153
[2022-01-25] MEDS: PANTOPRAZOLE SODIUM 40 MG/VIAL (PROTONIX) IVP SCH (08:15)
[2022-01-25] MEDS: SODIUM BICARBONATE 650 MG TABLET PO SCH (08:16)
[2022-01-25] MEDS: ASPIRIN 325 MG TABLET PO SCH (08:17)
[2022-01-25] MEDS: CALCIUM ACETATE 667 MG CAP PO SCH ×2 (08:17→11:46)
[2022-01-25] MEDS: cloNIDine HCL 0.2 MG TABLET PO SCH (08:18)
[2022-01-25] MEDS: FUROSEMIDE 40 MG TABLET PO SCH (08:19)
[2022-01-25] MEDS: LOSARTAN POTASSIUM 50 MG TABLET (COZAAR) PO SCH (08:19)
[2022-01-25] MEDS: NEPHROVITE, (FOLIC ACID/VITAMIN B COMP W-C 1 TAB) PO SCH (08:20)
[2022-01-25] MEDS: BALSAM PERU/CASTOR OIL 56.7 GM OINT...G. TP SCH (08:20)
[2022-01-25 12:00] VITALS: BP_SYST 144
[2022-01-25 15:52] VITALS: BP_SYST 138
[2022-01-25] MEDS ORDERED: HYDR100T25 PO (16:15)
[2022-01-25] MEDS ORDERED: CLONIDINE PO (16:17)
[2022-01-25] MEDS ORDERED: FURO-149 PO (16:19)
== END 2022-01-25 16:45 | disposition home health service (06) | DRG 682 ==
LOC: SED 17:55 → STU 20:27
PROVIDERS: ADMIT Internal Medicine Hospice and Palliative Medicine; ATTEND Internal Medicine Hospice and Palliative Medicine
PROC: 02HV33Z Insertion of Infusion Device into Superior Vena Cava, Percutaneous Approach (ICD-10-PCS; principal; 2022-01-17)
PROC: B548ZZA Ultrasonography of Superior Vena Cava, Guidance (ICD-10-PCS; 2022-01-17)
PROC: 5A1D70Z Performance of Urinary Filtration, Intermittent, Less than 6 Hours Per Day (ICD-10-PCS; 2022-01-18)
PROC: 5A1D70Z Performance of Urinary Filtration, Intermittent, Less than 6 Hours Per Day (ICD-10-PCS; 2022-01-19)
PROC: 02PYX3Z Removal of Infusion Device from Great Vessel, External Approach (ICD-10-PCS; 2022-01-21)
PROC: 02HV33Z Insertion of Infusion Device into Superior Vena Cava, Percutaneous Approach (ICD-10-PCS; 2022-01-21)
PROC: B518ZZA Fluoroscopy of Superior Vena Cava, Guidance (ICD-10-PCS; 2022-01-21)
PROC: 5A1D70Z Performance of Urinary Filtration, Intermittent, Less than 6 Hours Per Day (ICD-10-PCS; 2022-01-21)
DX: N17.9 Acute kidney failure, unspecified (principal); E43 Unspecified severe protein-calorie malnutrition; I21.A1 Myocardial infarction type 2; K29.71 Gastritis, unspecified, with bleeding; K22.6 Gastro-esophageal laceration-hemorrhage syndrome; J98.11 Atelectasis; G81.94 Hemiplegia, unspecified affecting left nondominant side; E87.1 Hypo-osmolality and hyponatremia; I13.2 Hypertensive heart and chronic kidney disease with heart failure and with stage 5 chronic kidney disease, or end stage renal disease; D63.1 Anemia in chronic kidney disease; N18.6 End stage renal disease; E83.52 Hypercalcemia; E11.65 Type 2 diabetes mellitus with hyperglycemia; E83.51 Hypocalcemia; E78.5 Hyperlipidemia, unspecified; E88.09 Other disorders of plasma-protein metabolism, not elsewhere classified; G47.00 Insomnia, unspecified; Z20.822 Contact with and (suspected) exposure to COVID-19; E83.39 Other disorders of phosphorus metabolism; E11.43 Type 2 diabetes mellitus with diabetic autonomic (poly)neuropathy; I50.9 Heart failure, unspecified; E11.22 Type 2 diabetes mellitus with diabetic chronic kidney disease; D50.9 Iron deficiency anemia, unspecified; K31.84 Gastroparesis; J45.909 Unspecified asthma, uncomplicated; Z99.2 Dependence on renal dialysis; Z86.73 Personal history of transient ischemic attack (TIA), and cerebral infarction without residual deficits; Z83.3 Family history of diabetes mellitus; Z79.899 Other long term (current) drug therapy; Z79.82 Long term (current) use of aspirin; Z68.30 Body mass index [BMI] 30.0-30.9, adult
CPT/HCPCS: 36415; 71045; 76000; 76770; 80048; 80053; 80074; 80307; 81000; 82043; 82570; 82962; 83036; 83540; 83550; 83735; 83880; 83970; 84100; 84302; 84443; 84484; 84703; 85018; 85025; 85610-TC; 85730-TC; 86480; 86886; 86900; 86901; 87081; 93005; 93306; 94760; 97116-GP; 99285; C1750; C9113; G0378; J0360; J0690; J0885; J1644; J1815; J2001; J2405; J2704; J2765; J2916; J3010; J3465; J7030